=== PATIENT | male | born 1940 | race Caucasian/White ===

== ENCOUNTER 2018-07-23 13:11 | Observation (INO) ==
--- NOTE | 2018-07-23 13:18 | Emergency Department Note ---
Disposition Clinical Impression: Chest pain Disposition: Admitted As Inpatient Referrals: Yoav Jefferson DO [Primary Care Provider] - Forms: ED Satisfaction Letter Time of Disposition: 14:47 Chest Pain HPI - General Chief Complaint: ED Chest Pain Stated Complaint: midsternal cp Time Seen by Provider: 07/23/18 13:15 Source: patient, family Mode of arrival: ambulatory Limitations: no limitations Vital Signs Reviewed: Yes Nursing Notes Reviewed: Yes - History of Present Illness Pt complaint: chest pain (78-year-old male who has had a 2 day history of interm ittent substernal chest pain no nausea no vomiting no diaphoresis not associated with activity patient recently treated for an upper respiratory tract infection patient is having review of system intermittent neck or to the jaw no weakness no diarrhea melena hematochezia hematemesis recent upper respiratory tract infection. Denies any loss of bowel or bladder control a swelling edema noted no rashes or lesions all systems have been reviewed and are otherwise negative) Onset (ago): day(s) (2) Duration: intermittent Onset: during rest, during exertion Pain Location: substernal Severity: moderate Severity scale (1-10): 6 Quality: aching Pain Radiation: none Improves with: nothing Worsens with: exertion, inspiration Context: recent illness Associated symptoms: Denies: nausea, vomiting, diaphoresis, dyspnea, sense of impending doom, syncope, palpitations, fever, cough, leg swelling Treatments prior to arrival chest pain: aspirin - Related Data Home Medications Medication Instructions Recorded Confirmed Latanoprost [Xalatan] 1 drop BOTH EYES HS 05/04/16 07/23/18 Rosuvastatin [Crestor] 40 mg PO DAILY 11/22/17 07/23/18 Brimonidine 0.2% [Alphagan] 1 drop BOTH EYES BID 12/19/17 07/23/18 Finasteride [Proscar] 5 mg PO DAILY 04/25/18 07/23/18 Irbesartan [Avapro] 150 mg PO DAILY 04/25/18 07/23/18 Cefdinir [Omnicef] 300 mg PO BID 07/23/18 07/23/18 Clopidogrel [Plavix] 75 mg PO DAILY 07/23/18 07/23/18 Fluorometholone [Fml] 1 drop RIGHT EYE QID 07/23/18 07/23/18 Guaifenesin/Codeine Phosphate 118 ml PO Q4-6H PRN 07/23/18 07/23/18 [Virtussin AC Liquid] Previous Rx's Medication Instructions Recorded Isosorbide MONOnitrate (24 HR) 30 mg PO DAILY #30 tab.er.24h 02/06/18 [Imdur] Allergies Allergy/AdvReac Type Severity Reaction Status Date / Time Penicillins Allergy Difficulty Verified 07/23/18 13:12 Breathing All systems ED: reviewed and negative except as stated. Review of Systems: As Per HPI Constitutional: Reports: weakness. Denies: fever, chills Eyes: Denies: eye pain, eye discharge ENT ED: Denies: ear pain, throat pain Cardiovascular: Reports: chest pain. Denies: palpitations, dyspnea on exertion Respiratory: Reports: cough. Denies: dyspnea, wheezes, sputum production Gastrointestinal: Denies: abdominal pain, nausea, vomiting Genitourinary: Denies: urgency, dysuria, frequency Musculoskeletal: Denies: back pain, neck pain Integumentary: Denies: rash, abrasion Neurological: Denies: headache Psychiatric: Denies: anxiety Endocrine: Denies: fatigue Hematological/Lymphatic: Denies: easy bleeding Allergic/Immunologic: Denies: facial swelling Chest Pain PMH - Past Medical History Medical history: Reports: coronary artery disease, dementia, diabetes, other Surgical history: Reports: other Psychiatric history: Reports: depression - Social History Smoking Status: Former smoker Alcohol use: Reports: none Drug use: Reports: none Physical Exam - General Limitations: no limitations General appearance: alert, in no apparent distress, other ([place]) - Head Head exam: atraumatic, normocephalic, normal inspection - Eye Eye exam: Present: normal appearance, PERRL, EOMI - ENT ENT exam: normal exam, normal oropharynx, mucous membranes moist, TM's normal bilaterally, normal external ear exam - Neck Neck exam: Present: normal inspection, full ROM, trachea midline - Chest Chest inspection: Present: normal inspection, symmetric chest wall rise - Respiratory Respiratory exam: Present: normal lung sounds bilaterally - Cardiovascular Cardiovascular exam: Present: regular rate, normal rhythm, normal heart sounds - Abdominal Exam Abdominal exam: Present: soft, Non-Tender, normal bowel sounds. Absent: mass, pulsatile mass - Extremities Exam Extremities exam: Present: normal inspection, full ROM, normal capillary refill. Absent: tenderness, pedal edema, joint swelling, calf tenderness - Expanded Lower Extremity Exam Neurovascular/Tendon exam: Present: normal capillary refill, normal fine/light touch Gait: observed and normal - Back Exam Back exam: Present: normal inspection, full ROM. Absent: muscle spasm - Neurological Exam Neurological exam: Present: alert, oriented X3, CN II-XII intact, normal gait - Psychiatric Psychiatric exam: Present: normal affect, normal mood - Skin Skin exam: Present: warm, dry, intact, normal color Course Course Narrative: Patient seen and evaluated laboratory data done recommended repeat labs and serial enzymes with the initial set being negative patient is agreeable admitted for observation status stable Dr. Alejandra Vital Signs Temperature 98.4 F 07/23/18 13:14 Pulse Rate 96 07/23/18 13:14 Respiratory Rate 18 07/23/18 13:14 Blood Pressure 137/78 07/23/18 13:14 O2 Sat by Pulse Oximetry 92 07/23/18 13:14 Temperature 98.4 F 07/23/18 13:14 Pulse Rate 89 07/23/18 14:18 Respiratory Rate 18 07/23/18 14:18 Blood Pressure 134/86 07/23/18 14:18 O2 Sat by Pulse Oximetry 95 07/23/18 14:18 Oxygen Delivery Oxygen Delivery Nasal Cannula Chest Pain - Differential Diagnosis Likely: chest pain - Medical Records Medical records reviewed: Yes I reviewed the patient's medical records. - Lab Data Lab results reviewed: Yes I reviewed the patient's lab results. Result diagrams: 07/23/18 13:28 07/23/18 13:28 Lab Results 07/23/18 07/23/18 07/23/18 Range/Units 13:28 13:28 13:28 WBC 14.7 H (4.3-11.1) K/mcL RBC 5.20 (4.19-5.50) M/mcL Hgb 15.4 (12.9-16.9) g/dL Hct 45.4 (37.5-50.1) % MCV 87.3 (83.0-100.0) fL MCH 29.6 (28.0-33.3) pg MCHC 33.9 (31.6-35.5) g/dL RDW 12.2 (11.5-14.5) % Plt Count 259 (140-400) K/mcL MPV 10.8 (9.4-12.4) fL Immature Gran % 0.5 (0-4) % Seg Neutrophils % 77.2 % Lymphocytes % 12.3 % Monocytes % 8.5 % Eosinophils % 1.2 % Basophils % 0.3 % Neutrophils # 11.4 H (1.6-8.9) K/mcL Lymphocytes # 1.8 (0.6-4.6) K/mcL Monocytes # 1.3 (0.0-1.3) K/mcL Eosinophils # 0.2 (0.0-0.6) K/mcL Basophils # 0.0 (0.0-0.2) K/mcL PT 14.5 H (9.4-12.1) Seconds INR 1.3 APTT 31.0 (26.0-36.0) Seconds Sodium 137 (136-145) mEq/L Potassium 3.7 (3.5-5.1) mEq/L Chloride 100 (98-107) mEq/L Carbon Dioxide 28 (23-29) mEq/L BUN 18 (8-23) mg/dL Creatinine 0.96 (0.70-1.30) mg/dL Est GFR ( Amer) > 60 (> 60) Est GFR (Non-Af Amer) > 60 (> 60) BUN/Creatinine Ratio 19 (6-26) Glucose 119 H (70-105) mg/dL Calculated Osmolality 287 (280-300) Calcium 9.3 (8.6-10.3) mg/dL Troponin I < 0.03 (< 0.04) ng/mL B-Natriuretic Peptide (Less than 100) pg/mL 07/23/18 Range/Units 13:28 WBC (4.3-11.1) K/mcL RBC (4.19-5.50) M/mcL Hgb (12.9-16.9) g/dL Hct (37.5-50.1) % MCV (83.0-100.0) fL MCH (28.0-33.3) pg MCHC (31.6-35.5) g/dL RDW (11.5-14.5) % Plt Count (140-400) K/mcL MPV (9.4-12.4) fL Immature Gran % (0-4) % Seg Neutrophils % % Lymphocytes % % Monocytes % % Eosinophils % % Basophils % % Neutrophils # (1.6-8.9) K/mcL Lymphocytes # (0.6-4.6) K/mcL Monocytes # (0.0-1.3) K/mcL Eosinophils # (0.0-0.6) K/mcL Basophils # (0.0-0.2) K/mcL PT (9.4-12.1) Seconds INR APTT (26.0-36.0) Seconds Sodium (136-145) mEq/L Potassium (3.5-5.1) mEq/L Chloride (98-107) mEq/L Carbon Dioxide (23-29) mEq/L BUN (8-23) mg/dL Creatinine (0.70-1.30) mg/dL Est GFR ( Amer) (> 60) Est GFR (Non-Af Amer) (> 60) BUN/Creatinine Ratio (6-26) Glucose (70-105) mg/dL Calculated Osmolality (280-300) Calcium (8.6-10.3) mg/dL Troponin I (< 0.04) ng/mL B-Natriuretic Peptide 32 (Less than 100) pg/mL - Radiology Data Radiology results reviewed: Yes I reviewed the patient's radiology results. ITS Impressions Chest X-Ray 07/23/18 13:17 IMPRESSION: 1. No acute radiographic abnormality in the chest. D/ / Freddie Monique MD / Freddie Monique MD Interpreting Provider: Freddie Monique MD - EKG Data EKG attestation: Yes I reviewed and interpreted this EKG. EKG results narrative: Sinus Rhythm nonspecific ST changes rate 89 pr 179 QRS 78 QT 350 r 18 Heart Score - Score History: Slightly Suspicious EKG: Non Specific repolarisation Disturbance Age: Greater than 65 Risk Factors: 1-2 risk factors Troponin: Less than normal limit HEART Score Total: 4 Critical Care Time Critical Care Time: No
[2018-07-23 13:34] LABS: Basophils % 0.3 %; Eosinophils # 0.2 K/mcL (0.0-0.6); Eosinophils % 1.2 %; Hematocrit 45.4 % (37.5-50.1); Hemoglobin 15.4 g/dL (12.9-16.9); Immature Granulocytes % 0.5 % (0-4); Lymphocytes # 1.8 K/mcL (0.6-4.6); Lymphocytes % 12.3 %; Mean Corpuscular HGB Conc 33.9 g/dL (31.6-35.5); Mean Corpuscular Hemoglobin 29.6 pg (28.0-33.3); Mean Corpuscular Volume 87.3 fL (83.0-100.0); Mean Platelet Volume 10.8 fL (9.4-12.4); Monocytes % 8.5 %; Platelet Count 259 K/mcL (140-400); Red Cell Distribution Width 12.2 % (11.5-14.5); Segmented Neutrophils % 77.2 %
[2018-07-23 13:39] LABS: Monocytes # 1.3 K/mcL (0.0-1.3); Neutrophils # 11.4 K/mcL (1.6-8.9)
[2018-07-23 13:44] LABS: INR 1.3; Prothrombin Time 14.5 Seconds (9.4-12.1)
[2018-07-23 13:48] LABS: BUN/Creatinine Ratio 19 (6-26); Blood Urea Nitrogen 18 mg/dL (8-23); Calcium 9.3 mg/dL (8.6-10.3); Carbon Dioxide 28 mEq/L (23-29); Chloride 100 mEq/L (98-107); Glucose 119 mg/dL (70-105); Osmolality,Calculated 287 (280-300); Potassium 3.7 mEq/L (3.5-5.1); Sodium 137 mEq/L (136-145); eGFR For Non-African Americans > 60 (> 60)
[2018-07-23 13:52] LABS: Troponin I < 0.03 ng/mL (< 0.04)
[2018-07-23] MEDS ORDERED: Naloxone 0.4 MG/ML INJ IVP PRN (14:55)
[2018-07-23] MEDS: Cefdinir 300 MG CAPSULE PO SCH ×2 (16:06→20:53)
[2018-07-23] MEDS: FLUOROMETHOLONE OP SCH ×2 (16:49→20:53)
[2018-07-23] MEDS: GuaiFENesin/Codeine Oral Soln 5 ML UDC PO PRN (18:00)
[2018-07-23] MEDS ORDERED: Latanoprost 2.5 ML BOTTLE BOTH EYES SCH (21:00)
[2018-07-24 02:30] LABS: Chol/HDL Ratio 2.4 (0-4.9); Magnesium 2.1 mg/dL (1.6-2.6)
[2018-07-24] MEDS: GuaiFENesin/Codeine Oral Soln 5 ML UDC PO PRN (06:32)
[2018-07-24] MEDS: Cefdinir 300 MG CAPSULE PO SCH (08:09)
[2018-07-24] MEDS: FLUOROMETHOLONE OP SCH ×2 (08:10→13:13)
[2018-07-24] MEDS ORDERED: Finasteride 5 MG TABLET PO SCH (09:00)
[2018-07-24] MEDS ORDERED: Isosorbide MONOnitrate (24 HR) 30 MG TAB.ER.24H PO SCH (09:00)
[2018-07-24 10:16] VITALS: BP 83/53
--- NOTE | 2018-07-24 11:16 | Internal Med History&Physical ---
Date of Encounter: 07/24/18 Time of Encounter: 10:40 Assessment and Plan (1) Chest pain Current visit: Yes Status: Acute Doubt myocardial ischemia from history and physical. Repeat cardiac enzymes were ordered through emergency room. Qualifiers: Chest pain type: unspecified Qualified Code(s): R07.9 - Chest pain, unspecified (2) Bronchitis Current visit: Yes Status: Acute I told patient and this was likely viral origin and further antibiotics are probably not going to be beneficial. (3) Hypertension Current visit: No Status: Chronic Continue Avapro Qualifiers: Hypertension type: essential hypertension Qualified Code(s): I10 - Essential (primary) hypertension Internal Medicine - H&P: HPI Chief complaint: Cough and chest pain Admitted From: Emergency Dept Plans for Post Hospital Care: Home History of present illness: Mr. Valdez is a 78 year old male who came to emergency room stating he had onset of bronchitis symptoms approximately one week ago. He saw his PCP and received prescription for antibiotic (? Omnicef), cough syrup, and prednisone. He took these as prescribed but continued to have cough with production of yellow sputum. Approximate 2-3 days later he developed discomfort in his chest that initially started out as heaviness then developed a knifelike sharpness. He became more concerned so came to emergency room. He was evaluated and admitted to [facility] [place] [place] floor for ongoing care needs. He states he feels improved now and wishes to be discharged home. His respiratory history is significant for having smoked from age [age] up to 2 packs per day. He does not use home oxygen. He has a diagnosis COPD. 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 He is being followed by an oncologist at [facility] and is presumed cancer free. Cardiovascular history significant for hypertension but no known ND heart failure angina DVT or pulmonary embolus. He had endovascular repair of abdominal aortic aneurysm several years ago. He had an echocardiogram 02/05/2018 which showed LVEF of 55-60% with mild LV diastolic dysfunction and no significant valvular abnormality. A Regadenoson EST 02/06/2018 showed EF of 59% with out EKG or perfusion imaging significant for ischemia or infarct. Past Med Surg Social Fam HX - Past Medical History Medical history: coronary artery disease, dementia, diabetes, other Additional medical history: Diet controlled diabets Psychiatric history: depression - Past Surgical History Surgical History: other Additional surgical history: left lung sugery for CA, AAA repair, bladder CA surgery, Laser surgery to bladder, Green light surgery to prostate, right elbow surgery - Social History Smoking Status: Former smoker Smokeless Tobacco Status: No Alcohol use: occasionally Drug use: none - Family History Father Living Status: Mother Living Status: Hx Family Cardiac Disorders: Yes Hx Family Respiratory Disorders: Yes Internal Medicine - H&P: Meds Latanoprost [Xalatan] 1 drop BOTH EYES HS 05/04/16 [History] Rosuvastatin [Crestor] 40 mg PO DAILY 11/22/17 [History] Brimonidine 0.2% [Alphagan] 1 drop BOTH EYES BID 12/19/17 [History] Isosorbide MONOnitrate (24 HR) [Imdur] 30 mg PO DAILY #30 tab.er.24h 02/06/18 [Rx] Finasteride [Proscar] 5 mg PO DAILY 04/25/18 [History] Irbesartan [Avapro] 150 mg PO DAILY 04/25/18 [History] Cefdinir [Omnicef] 300 mg PO BID 07/23/18 [History] Clopidogrel [Plavix] 75 mg PO DAILY 07/23/18 [History] Fluorometholone [Fml] 1 drop RIGHT EYE QID 07/23/18 [History] Guaifenesin/Codeine Phosphate [Virtussin AC Liquid] 118 ml PO Q4-6H PRN 07/23/18 [History] Allergy/AdvReac Type Severity Reaction Status Date / Time Penicillins Allergy Difficulty Verified 07/23/18 13:12 Breathing All Systems PM: A 10-system review of systems was performed and is negative for pertinent findings except as documented above in the HPI. Review of systems: Gen.: His weight has decreased from 83.143 kg on 05/10/2016 to 78.834 kg today Cardiovascular: As per history of present illness Respiratory: As per history of present illness GI: He denies disorders of his liver gallbladder or exocrine pancreas : He has history of BPH and had greenlight procedure. He thinks he had diagnosis of prostate cancer. He had bladder cancer which was treated and he is presumed cancer free. He denies other kidney or bladder disorders. 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 His most recent stroke led to swing bed stay at [facility] April 2016. Endocrine: He was diagnosed with DM 2 approximately 2010. He denies known thyroid disease or hyperlipidemia Hematology/oncology: He has history of lung cancer, prostate cancer and bladder cancer as per above. He denies anemia or other malignancies. He believes he is cancer free at this time Psychiatric: He denies anxiety depression or other mental health issues Musk skeletal: He has DJD. He had cervical laminectomy. - Constitutional Vitals: Temp Pulse Resp BP Pulse Ox 97.7 F 78 16 83/53 95 07/24/18 10:00 07/24/18 10:00 07/24/18 10:00 07/24/18 10:00 07/24/18 10:00 Exam: Gen.: He is a well-developed well-nourished male resting comfortably in bed who appears in no acute distress HEENT: Head is atraumatic and normocephalic. Eyes: EOMI. There is no scleral icterus. Mouth: Mucosa is moist. Neck: Supple and nontender. There is no thyromegaly or adenopathy noted. Heart: Regular without murmurs or gallops. An occasional ectopic beat is heard. Lungs: No wheezes crackles or egophony are heard Abdomen: Soft and nontender. No masses or guarding are noted. Extremities: There is no cyanosis edema or clubbing noted. Dorsalis pedis and posterior tibial pulses are 1-2 over 2 bilaterally. Neurologic: Mental status: He is talkative and seems to be a good historian. He is hard of hearing. Cranial nerves: Smile is symmetric. Forehead wrinkles bilaterally. Tongue protrudes midline. EOMI. Motor: There is no pronator drift. Cerebellar: Finger to nose is intact bilaterally. Skin: Warm and dry Internal Med - H&P Results - Labs CBC & Chem 7: 07/23/18 13:28 07/23/18 13:28 Labs: Short CBC 07/23/18 Range/Units 13:28 WBC 14.7 H (4.3-11.1) K/mcL Hgb 15.4 (12.9-16.9) g/dL Hct 45.4 (37.5-50.1) % Plt Count 259 (140-400) K/mcL Neutrophils # 11.4 H (1.6-8.9) K/mcL BMP 07/23/18 13:28 Sodium 137 Potassium 3.7 Chloride 100 Carbon Dioxide 28 BUN 18 Creatinine 0.96 Glucose 119 H Calcium 9.3 Cardiac Enzymes 07/23/18 07/23/18 07/24/18 Range/Units 13:28 19:33 02:10 Troponin I < 0.03 < 0.03 < 0.03 (< 0.04) ng/mL - Impressions ITS Impressions Chest X-Ray 07/23/18 13:17 IMPRESSION: 1. No acute radiographic abnormality in the chest. D/ / Freddie Monique MD / Freddie Monique MD Interpreting Provider: Freddie Monique MD
--- NOTE | 2018-07-24 11:29 | Discharge Summary ---
Date of Encounter: 07/24/18 Time of Encounter: 10:40 - Discharge Diagnosis (1) Chest pain Priority: Primary Status: Acute Qualifiers: Chest pain type: unspecified Qualified Code(s): R07.9 - Chest pain, unspecified (2) Bronchitis Priority: Secondary Status: Acute (3) Hypertension Priority: Secondary Status: Chronic Qualifiers: Hypertension type: essential hypertension Qualified Code(s): I10 - Esse ntial (primary) hypertension Hospital course: Mr. Valdez is a 78 year old male who came to emergency room stating he had onset of bronchitis symptoms approximately one week ago. He saw his PCP and received prescription for antibiotic (? Omnicef), cough syrup, and prednisone. He took these as prescribed but continued to have cough with production of yellow sputum. Approximate 2-3 days later he developed discomfort in his chest that initially started out as heaviness then developed a knifelike sharpness. He became more concerned so came to emergency room. He was evaluated and admitted to [facility] for ongoing care needs. Initial orders were written by the emergency room physician. I saw him on July 24 and performed the history physical and discharge. Repeat cardiac enzymes showed no evidence of myocardial damage. When I saw him I did not think the chest pain was likely to be of myocardial ischemic origin. The pain was not reproduced on chest wall compression. The etiology of the pain was not determined with certainty but I felt was likely due to bronchitis and coughing. I did not feel further cardiac workup is indicated since he had Regadenoson EST January 2018 which was unremarkable and does not get angina or anginal equivalents on exertion at home prior to present illness. I explained to patient and I felt he likely had bronchitis from viral etiology. No further anabiotic be given. Room air oximetry will be checked on 6 minute walk prior to discharge. He will be discharged home and will follow with his PCP Dr. Jefferson within 1 week. - Time Spent with Patient Total time spent providing and/or coordinating discharge services: - Discharge Medications Home Medications: Latanoprost [Xalatan] 1 drop BOTH EYES HS 05/04/16 [History] Rosuvastatin [Crestor] 40 mg PO DAILY 11/22/17 [History] Brimonidine 0.2% [Alphagan] 1 drop BOTH EYES BID 12/19/17 [History] Isosorbide MONOnitrate (24 HR) [Imdur] 30 mg PO DAILY #30 tab.er.24h 02/06/18 [Rx] Finasteride [Proscar] 5 mg PO DAILY 04/25/18 [History] Irbesartan [Avapro] 150 mg PO DAILY 04/25/18 [History] Clopidogrel [Plavix] 75 mg PO DAILY 07/23/18 [History] Fluorometholone [Fml] 1 drop RIGHT EYE QID 07/23/18 [History] Guaifenesin/Codeine Phosphate [Virtussin AC Liquid] 118 ml PO Q4-6H PRN 07/23/18 [History] Allergies/Adverse Reactions: Allergy/AdvReac Type Severity Reaction Status Date / Time Penicillins Allergy Difficulty Verified 07/23/18 13:12 Breathing Date of admission: 07/23/18 14:53 Primary care physician: Yoav Jefferson DO - Constitutional Vitals: Temp Pulse Resp BP Pulse Ox 97.7 F 78 16 83/53 95 07/24/18 10:00 07/24/18 10:00 07/24/18 10:00 07/24/18 10:00 07/24/18 10:00 - Patient Status Disposition: Home, Self-Care - Discharge Instructions Follow Up With: Yoav Jefferson DO [Primary Care Provider] - 1 week - Diet and Activity Activity: resume usual activities as tolerated Diet: advance to your usual diet
== END 2018-07-24 15:30 | disposition home or self-care (01) ==
LOC: EMEROOPIK 13:11 → INPPIK 13:11
PROVIDERS: ADMIT Internal Medicine; ATTEND Internal Medicine